=== PATIENT | male | born 1960 | race Caucasian/White ===

== ENCOUNTER 2022-09-02 12:00 | Day surgery (SDC) | payer OTHER ==
[2022-08-28 11:06] LABS: BASOPHILS % (AUTO) 0.3 % (0-1); EOSINOPHILS % (AUTO) 0.6 % (0-6); HEMATOCRIT 45.2 % (42.0-52.0); HEMOGLOBIN 15.3 g/dl (14.0-17.9); LYMPHOCYTES # (AUTO) 1.9 X10'3 (1.1-4.8); LYMPHOCYTES % (AUTO) 28.7 % (21-51); MEAN CORPUSCULAR HEMOGLOBIN 32.5 PG (27.0-31.0); MEAN CORPUSCULAR HGB CONC 33.9 g/dL (33.0-36.5); MEAN PLATELET VOLUME 7.3 FL (7.4-10.4); MONOCYTES # (AUTO) 0.6 X10'3 (0-0.9); MONOCYTES % (AUTO) 8.8 % (2-12); NEUTROPHILS % (AUTO) 61.6 % (42-75); PLATELET COUNT 225 X10'3 (140-440); RED BLOOD COUNT 4.71 X10'6 (4.70-6.10); RED CELL DISTRIBUTION WIDTH 13.7 % (11.5-14.5); WHITE BLOOD COUNT 6.5 X10'3 (4.5-11.0)
[2022-08-28 11:15] LABS: APTT 28 SECONDS (22-32)
[2022-08-28 11:24] LABS: ALBUMIN 3.9 G/DL (3.4-5.0); ANION GAP 7 (8-16); BLOOD UREA NITROGEN 15 MG/DL (7-18); CHLORIDE 107 MMOL/L (99-107); CHOL/HDL RATIO 3.9 (0.00-4.99); CHOLESTEROL 154 MG/DL (0-200); CREATININE 0.88 MG/DL (0.60-1.10); GLUCOSE 107 MG/DL (70-104); HDL CHOLESTEROL 40 MG/DL (35-60); LDL CHOLESTEROL 110 MG/DL (50-100); POTASSIUM 4.3 MMOL/L (3.5-5.1); SODIUM 141 MMOL/L (135-145); TOTAL CARBON DIOXIDE 26.6 MMOL/L (24-32); TRIGLYCERIDES 35 MG/DL (20-135); eGFR 87 ML/MIN
[~2022-09-02] VITALS: Ht 175.3 cm; Wt 122.5 kg
[2022-09-02] MEDS ORDERED: normal saline 1,000 ML IV SCH (12:15)
[2022-09-02] MEDS ORDERED: diphenhydrAMINE 25mg capsule PO PRN (12:15)
[2022-09-02] MEDS ORDERED: LORazepam 0.5 MG tablet PO PRN (12:15)
[2022-09-02 12:23] VITALS: BP 152/89
[2022-09-02] MEDS ORDERED: LOSA50TA64 PO (12:27)
[2022-09-02] MEDS ORDERED: METO25TA6 PO (12:27)
[2022-09-02] MEDS ORDERED: PANT40TA54 PO (12:27)
[2022-09-02] MEDS ORDERED: IBUP-1986 PO (12:27)
[2022-09-02] MEDS ORDERED: ASPI-1265 PO (12:27)
[2022-09-02] MEDS ORDERED: ALBU18HF2 (12:27)
[2022-09-02] MEDS ORDERED: verapamil 2.5 mg/ml inj IV ONE (15:35)
[2022-09-02] MEDS ORDERED: nitroGLYCERIN-Tridil 50MG/D5W 250 ML IV ONE (15:35)
[2022-09-02] MEDS ORDERED: midazolam 1 mg/ML 2ml injection ONE (15:35)
[2022-09-02] MEDS ORDERED: heparin 1,000unit/ml 10ml vial 10 ML ONE (15:36)
[2022-09-02] MEDS ORDERED: iohexol 350MG/ML 100ml bottle IV ONE (15:36)
[2022-09-02] MEDS ORDERED: fentaNYL/PF 50MCG/1 ML 2ML syringe ONE (15:36)
[2022-09-02] MEDS ORDERED: LIDOcaine 1% (10mg/ml) 2ml vial ONE (15:52)
[2022-09-02 16:43] VITALS: BP 120/87
[2022-09-02 16:58] VITALS: BP 127/71
[2022-09-02] MEDS ORDERED: HYDROcodone/acetaminophen 5mg/325mg tablet PO PRN (17:05)
[2022-09-02] MEDS ORDERED: HYDROcodone/acetaminophen 10/325mg tab PO PRN (17:05)
[2022-09-02 17:13] VITALS: BP 125/66
[2022-09-02 17:28] VITALS: BP 127/79
[2022-09-02 17:43] VITALS: BP 114/82
== END 2022-09-02 18:25 | disposition home or self-care (01) ==
LOC: SSTAY O 12:00
PROVIDERS: ATTEND Student in an Organized Health Care Education/Training Program
DX: R94.39 Abnormal result of other cardiovascular function study (principal); I25.10 Atherosclerotic heart disease of native coronary artery without angina pectoris; I10 Essential (primary) hypertension; E78.5 Hyperlipidemia, unspecified; Z79.01 Long term (current) use of anticoagulants
CPT/HCPCS: 36415; 80048; 80061; 85025; 85610; 85730; 93005; 93458; 99152; C1769; C1894; J1644; J2250; J3010; J3490; J7030; Q0163; Q9967; 99153; A6258; A6402